=== PATIENT | female | born 1955 | race Native Hawaiian/Other Pacific Islander ===

== ENCOUNTER 2020-11-16 09:50 | Outpatient (CLI) | payer OTHER, MEDICARE | END 2020-11-16 21:48 | disposition home or self-care (01) | LOC: RAD 09:50 | PROVIDERS: ATTEND Nurse Practitioner Family | DX: M79.671 Pain in right foot (principal); M79.672 Pain in left foot ==

== ENCOUNTER 2021-01-31 10:07 | Outpatient (CLI) | payer OTHER, MEDICARE | END 2021-01-31 19:09 | disposition home or self-care (01) | LOC: MAMMO 10:07 | PROVIDERS: ATTEND Nurse Practitioner Family | DX: Z12.31 Encounter for screening mammogram for malignant neoplasm of breast (principal); N28.89 Other specified disorders of kidney and ureter ==

== ENCOUNTER 2021-06-25 11:03 | Outpatient (CLI) | payer OTHER, MEDICARE | END 2021-06-25 19:01 | disposition home or self-care (01) | LOC: MAMMO 11:03 | PROVIDERS: ATTEND Family Medicine | DX: N64.59 Other signs and symptoms in breast (principal); Z12.31 Encounter for screening mammogram for malignant neoplasm of breast ==

== ENCOUNTER 2021-10-14 14:55 | Outpatient (CLI) | payer OTHER, MEDICARE | END 2021-10-14 19:03 | disposition home or self-care (01) | LOC: RAD 14:55 | PROVIDERS: ATTEND Nurse Practitioner Primary Care | DX: M25.561 Pain in right knee (principal) ==

== ENCOUNTER 2022-02-11 09:35 | Outpatient (CLI) | payer OTHER, MEDICARE | END 2022-02-11 19:09 | disposition home or self-care (01) | LOC: MAMMO 09:35 | PROVIDERS: ATTEND Nurse Practitioner | DX: Z12.31 Encounter for screening mammogram for malignant neoplasm of breast (principal) ==

== ENCOUNTER 2022-04-04 09:49 | Outpatient (CLI) | payer OTHER, MEDICARE | END 2022-04-04 22:11 | disposition home or self-care (01) | LOC: US 09:49 | PROVIDERS: ATTEND Internal Medicine | DX: N63.10 Unspecified lump in the right breast, unspecified quadrant (principal); N61.0 Mastitis without abscess; Z13.820 Encounter for screening for osteoporosis; N95.8 Other specified menopausal and perimenopausal disorders ==